=== PATIENT | female | born 1995 | race Caucasian/White ===

== ENCOUNTER 2017-06-23 11:12 | Emergency (ER) | payer BC, MEDICAID ==
[~2017-06-23] VITALS: Ht 162.6 cm; Wt 51.3 kg
[2017-06-23 11:12] VITALS: BP 110/72
[2017-06-23] MEDS ORDERED: ABILIFY2 MG ORAL (11:14)
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
[2017-06-23 12:07] LABS: APPEARANCE,URINE CLEAR; KETONES,URINE NEGATIVE (NEGATIVE); LEUKOCYTE ESTERASE ,URINE 1+ (NEGATIVE); NITRITE,URINE NEGATIVE (NEGATIVE); PH,URINE 8 (4.5-8.0); PROTEIN,URINE NEGATIVE (NEGATIVE); UROBILINOGEN,URINE NORMAL MG/DL (0.0-1.0)
[2017-06-23 12:19] LABS: BACTERIA,URINE FEW /HPF; RBC,URINE 0-2 /HPF (0 - 2); SQUAMOUS EPITHELIAL CELL,UR FEW /LPF (NONE/OCC); WBC,URINE 0-2 /HPF (0 - 2)
[2017-06-23 13:02] VITALS: BP 110/72
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
== END 2017-06-23 13:02 | disposition home or self-care (01) ==
LOC: EDBD 11:12 → EMR 11:35
DX: T14.91XA Suicide attempt, initial encounter (principal); F15.90 Other stimulant use, unspecified, uncomplicated; F39 Unspecified mood [affective] disorder
CPT/HCPCS: 80307; 81003; 81025; 99284